=== PATIENT | female | born 2000 | race Two or more races ===

== ENCOUNTER 2022-11-13 13:00 | Emergency (ER) | payer OTHER ==
[~2022-11-13] VITALS: Ht 162.6 cm; Wt 77.1 kg
[~2022-11-13 13:00] MED LIST: PEPCID20 MG PO
== END 2022-11-13 15:31 | disposition home or self-care (01) ==
LOC: EMR PED 13:00
DX: U07.1 COVID-19 (principal)

== ENCOUNTER 2023-08-20 21:42 | Emergency (ER) | payer OTHER ==
[~2023-08-20] VITALS: Ht 162.6 cm; Wt 77.1 kg
[2023-08-20] MEDS ORDERED: 0.9 % SODIUM CHLORIDE 1,000 ML IV STA (22:05)
[2023-08-20 23:17] LABS: HEMATOCRIT 37.1 % (36.0-45.00); HEMOGLOBIN 12.4 g/dL (12.0-15.00); MEAN CELL VOLUME 90.1 fL (80.00-100.00); MEAN CORPUSCULAR HEMOGLOBIN 30.1 pg (27.00-32.0); MEAN CORPUSCULAR HGB CONC 33.4 g/dl (32.0-36.0); PLATELET COUNT 377 K/uL (150-450); RED BLOOD COUNT 4.12 M/uL (4.00-6.00); RED CELL DISTRIBUTION WIDTH 13.6 % (11.5-14.5)
[2023-08-20 23:35] LABS: CALCIUM 8.9 mg/dL (8.5-10.1); CREATININE SERUM 0.65 mg/dL (0.55-1.02); GFR 115.06; POTASSIUM 3.61 mEq/L (3.5-5.1)
[2023-08-21 00:14] LABS: URINE APPEARANCE Turbid; URINE BILIRRUBIN Negative (NEGATIVE); URINE BLOOD Small; URINE COLOR Yellow; URINE GLUCOSE Negative (NEGATIVE); URINE LEUKOCYTE Negative; URINE NITRATE Negative; URINE PROTEIN Trace (NEGATIVE)
[2023-08-21 00:18] LABS: URINE BACTERIA 1160.3 uL (0.0-1933); URINE EPITHELIAL CELLS 31.5 uL (0.0-38.8); URINE RBC 104.1 uL (0.0-20.8); URINE WBC 20.2 uL (0.0-23.2)
[2023-08-21] MEDS ORDERED: INTESTINEX680 M1 PO (02:40)
[2023-08-21] MEDS ORDERED: PEPCID40 MG PO (02:40)
[2023-08-21] MEDS ORDERED: ONDANSETRON ODT4 MG PO (02:40)
== END 2023-08-21 02:43 ==
LOC: ER 21:42
PROVIDERS: Emergency Medicine
DX: K52.89 Other specified noninfective gastroenteritis and colitis (principal)
CPT/HCPCS: 36415; 96365; 96366; 99282; J7030

== ENCOUNTER 2024-04-22 22:29 | Emergency (ER) | payer OTHER ==
[~2024-04-22] VITALS: Ht 165.1 cm; Wt 79.4 kg
[~2024-04-22 22:29] MED LIST changes: +INTESTINEX680 M1 PO; +ONDANSETRON ODT4 MG PO; +PEPCID40 MG PO
[2024-04-22] MEDS ORDERED: RELAFEN DS1000 MG (22:37)
[2024-04-23] MEDS ORDERED: KETOROLAC TROMETHAMINE 60 MG VIAL IM STA (02:06)
[2024-04-23] MEDS ORDERED: ORPHENADRINE CITRATE 30 MG/ML AMPUL IM STA (02:07)
[2024-04-23] MEDS ORDERED: KETO10TA2 PO (03:08)
[2024-04-23] MEDS ORDERED: NORFLEX100MG PO (03:08)
== END 2024-04-23 03:40 ==
LOC: ER 22:31
DX: S23.8XXA Sprain of other specified parts of thorax, initial encounter (principal); X58.XXXA Exposure to other specified factors, initial encounter; Y93.89 Activity, other specified; Y92.89 Other specified places as the place of occurrence of the external cause; Y99.8 Other external cause status; M54.2 Cervicalgia